=== PATIENT | male | born 1970 | race Caucasian/White ===

== ENCOUNTER 2024-12-03 21:34 | Emergency (ER) | payer OTHER ==
[~2024-12-03] VITALS: Ht 182.8 cm; Wt 115.7 kg
[2024-12-03] MEDS ORDERED: IOHEXOL 300 MG/ML 100 ML VIAL IV ONE (22:20)
[2024-12-03 22:43] LABS: BASO # 0.1 10*3/uL (0.0-0.1); BASO % 0.7 % (0.0-1.0); EOS # 0.4 10*3/uL (0.0-0.4); HEMATOCRIT 47.4 % (42.0-52.0); MEAN CELL VOLUME 90.1 fl (80.0-94.0); MEAN CORPUSCULAR HGB 30.4 pg (27.0-31.0); MEAN CORPUSCULAR HGB CONC 33.8 g/dl (33.0-37.0); MEAN PLATELET VOLUME 8.9 fl (9.6-12.3); MONO # 1.2 10*3/uL (0.1-1.0); MONO % 12.7 % (3.0-9.0); NEUT # 4.7 10*3/uL (2.3-7.9); NEUT % 48.3 % (47.0-73.0); PLATELET COUNT AUTOMATED 301 10*3/uL (130-400); RED BLOOD COUNT 5.26 10*6/uL (4.50-5.90); RED CELL DISTRI WIDTH 12.5 % (0-14.5); WHITE BLOOD COUNT 9.7 10*3/uL (4.8-10.8)
[2024-12-03 23:03] LABS: ALKALINE PHOSPHATASE 82 U/L (46-116); BUN 16 mg/dl (9-23); CHLORIDE 103 mmol/L (98-107); POTASSIUM 3.7 mmol/L (3.4-5.1); SGPT/ALT 64 U/L (5-49); TOTAL PROTEIN 6.6 gm/dL (6.0-8.0)
[2024-12-04] MEDS ORDERED: PREDNISONE20 M1 PO (01:48)
[2024-12-04] MEDS ORDERED: CLINDAMYCIN HC300 MG PO (01:48)
[2024-12-04] MEDS ORDERED: Dexamethasone Sodium Phospha 20 MG/5 ML VIAL IM ONE (01:50)
[2024-12-04] MEDS ORDERED: CLINDAMYCIN HCL 300 MG CAPSULE PO ONE (01:50)
[2024-12-04] MEDS ORDERED: Dexamethasone Sodium Phospha 20 MG/5 ML VIAL IV ONE (01:55)
== END 2024-12-04 02:17 | disposition home or self-care (01) ==
LOC: ED 21:34
PROVIDERS: Emergency Medicine
DX: L03.116 Cellulitis of left lower limb (principal); Z98.890 Other specified postprocedural states

== ENCOUNTER 2024-12-04 19:21 | Emergency (ER) | payer OTHER ==
[~2024-12-04] VITALS: Ht 182.8 cm; Wt 106.6 kg
[~2024-12-04 19:21] MED LIST: CLINDAMYCIN HC300 MG PO; PREDNISONE20 M1 PO
[2024-12-04 20:10] LABS: BASO % 0.1 % (0.0-1.0); EOS % 0.2 % (1.0-4.0); HEMATOCRIT 45.6 % (42.0-52.0); MEAN CELL VOLUME 88.5 fl (80.0-94.0); MEAN CORPUSCULAR HGB 30.5 pg (27.0-31.0); MEAN CORPUSCULAR HGB CONC 34.4 g/dl (33.0-37.0); MEAN PLATELET VOLUME 8.8 fl (9.6-12.3); MONO # 0.5 10*3/uL (0.1-1.0); MONO % 3.7 % (3.0-9.0); NEUT # 12.4 10*3/uL (2.3-7.9); NEUT % 88.1 % (47.0-73.0); PLATELET COUNT AUTOMATED 327 10*3/uL (130-400); RED BLOOD COUNT 5.15 10*6/uL (4.50-5.90); RED CELL DISTRI WIDTH 12.3 % (0-14.5); WHITE BLOOD COUNT 14.1 10*3/uL (4.8-10.8)
== END 2024-12-04 21:11 | disposition home or self-care (01) ==
LOC: ED 19:21
PROVIDERS: Internal Medicine
DX: L03.116 Cellulitis of left lower limb (principal); D72.829 Elevated white blood cell count, unspecified; Z98.890 Other specified postprocedural states

== ENCOUNTER → 2024-12-23 | Outpatient (CLI) | payer OTHER | END | disposition home or self-care (01) | LOC: RAD 09:32 | PROVIDERS: ATTEND Nurse Practitioner Family | DX: M25.771 Osteophyte, right ankle (principal); M79.89 Other specified soft tissue disorders; M25.562 Pain in left knee; M25.571 Pain in right ankle and joints of right foot; M25.871 Other specified joint disorders, right ankle and foot ==